=== PATIENT | male | born 1950 | race Native Hawaiian/Other Pacific Islander ===

== ENCOUNTER 2016-03-03 17:56 | Emergency (ER) | payer OTHER, BC ==
[~2016-03-03] VITALS: Ht 167.6 cm; Wt 69.9 kg
[~2016-03-03 17:56] MED LIST: BENICAR20 MG PO; BENZSOL4 OT; CIPR500T PO; GLUCOPHAGE1000 MG PO; METF100038 OR; SIMV10TA PO
[2016-03-03 18:18] VITALS: BP 157/90; TEMP 98.2
[2016-03-03] MEDS ORDERED: ASPIRIN81 M1 OR (18:20)
== END 2016-03-03 18:56 | disposition home or self-care (01) ==
LOC: ED 17:56
PROC: 0X3 Anatomical Regions, Upper Extremities, Control (ICD-10-PCS; principal; 2016-03-03)
DX: S61.002A Unspecified open wound of left thumb without damage to nail, initial encounter (principal); X58.XXXA Exposure to other specified factors, initial encounter; Y92.098 Other place in other non-institutional residence as the place of occurrence of the external cause
CPT/HCPCS: 99282

== ENCOUNTER → 2020-05-08 | Outpatient (CLI) | payer BC, OTHER ==
[~2020-05-08] MED LIST changes: +ASPIRIN81 M1 OR
== END ==
LOC: INF 10:45
PROVIDERS: ATTEND Internal Medicine
DX: Z23 Encounter for immunization (principal)
CPT/HCPCS: 96372

== ENCOUNTER 2020-05-30 13:56 | Outpatient (CLI) | payer BC, OTHER | END 2020-05-30 21:27 | disposition home or self-care (01) | LOC: INF 13:56 | PROVIDERS: ATTEND Internal Medicine | DX: Z23 Encounter for immunization (principal) | CPT/HCPCS: 96372 ==

== ENCOUNTER 2021-01-30 13:48 | Outpatient (CLI) | payer BC, OTHER ==
[2021-01-30 14:13] LABS: PLATELET COUNT 222 K/uL (142-355)
== END 2021-01-30 19:06 | disposition home or self-care (01) ==
LOC: LAB 13:48
PROVIDERS: ATTEND Internal Medicine
DX: E11.9 Type 2 diabetes mellitus without complications (principal); Z12.5 Encounter for screening for malignant neoplasm of prostate; N40.0 Benign prostatic hyperplasia without lower urinary tract symptoms
CPT/HCPCS: 80053; 80061; 81000; 83036; 84153; 84439; 84443; 85027

== ENCOUNTER 2022-08-15 08:05 | Outpatient (CLI) | payer BC, OTHER | END 2022-08-15 19:42 | disposition home or self-care (01) | LOC: US 08:05 | PROVIDERS: ATTEND Internal Medicine | DX: N18.31 Chronic kidney disease, stage 3a (principal) ==